=== PATIENT | female | born 1940 | race Caucasian/White ===

== ENCOUNTER 2016-06-12 10:57 | Emergency (ER) | payer MEDICARE, OTHER ==
[2016-06-12 12:23] LABS: Urine Bacteria 3+ (Absent); Urine Bilirubin Negative (Negative); Urine Glucose Negative (Negative); Urine Nitrite Negative (Negative)
[2016-06-12 12:25] LABS: Hematocrit 41 % (35-47); Hemoglobin 13.5 g/dl (12.0-16.0); Mean Corpuscular HGB Conc 33 g/dl (31-36); Mean Corpuscular Hemoglobin 30 pg (27-31); Mean Corpuscular Volume 90 fL (80-97); Mean Platelet Volume 8 um3 (7.4-10.4); Red Blood Count 4.55 10^6/ul (4.0-5.4); Red Cell Distribution Width 14 % (10.5-15); White Blood Count 14.3 10^3/ul (3.5-10.8)
[2016-06-12 12:40] LABS: ALT 10 U/L (7-52); AST 14 U/L (13-39); Albumin 4.5 g/dL (3.2-5.2); Alkaline Phosphatase 60 U/L (34-104); Anion Gap 9 mmol/L (2-11); BUN/Creatinine Ratio 11.8 (8-20); Blood Urea Nitrogen 9 mg/dL (6-24); C Reactive Protein 120.13 mg/L (< 5.00); CO2 Carbon Dioxide 24 mmol/L (22-32); Calcium 9.5 mg/dL (8.6-10.3); Chloride 97 mmol/L (101-111); EGFR African American 94.9 (>60); EGFR Non-African American 73.8 (>60); Globulin 2.9 g/dL (2-4); Glucose 121 mg/dL (70-100); Lipase < 10 U/L (11.0-82.0); Potassium 3.8 mmol/L (3.5-5.0); Sodium 130 mmol/L (133-145); Total Protein 7.4 g/dL (6.4-8.9)
[2016-06-12] MEDS ORDERED: traMADol TAB* 50 MG PO ONE (13:26)
[2016-06-12] MEDS ORDERED: Ciprofloxacin TAB* 500 MG PO ONE (13:26)
[2016-06-12 13:45] VITALS: BP 136/79
--- NOTE | 2016-07-15 10:54 | ED ---
clayton Hsu Timothy, scribed for Allan Adorno MD on 06/12/16 at 1206 . Abdominal Pain/Female - HPI Summary HPI Summary: Dianna Harmon is a 75 yo female presenting to [facility] with 3/10 burning mid- abd pain for the past 2 days. Her is present in room. She also has nausea without vomiting or diarrhea, and a Hx of diverticulosis. She had a sonogram of her kidneys recently, with no acute results. She notes an increase in urinary frequency, and when she gave a urine sample today she noticed sediment in the sample. She had a normal BM today, which did not alleviate the pain. Her pain increases with food. She had a normal BM today. Her MHx includes diverticulosis, arthritis, GERD, ulcer. - History of Current Complaint Chief Complaint: EDAbdPain Stated Complaint: ABD PAIN Time Seen by Provider: 06/12/16 11:41 Hx Obtained From: Patient Onset/Duration: Gradual Onset, Lasting Days, Still Present Timing: Constant Severity Initially: Moderate Severity Currently: Moderate Pain Intensity: 3 Pain Scale Used: 0-10 Numeric Location: Epigastric Radiates: No Character: Burning Aggravating Factor(s): Food Alleviating Factor(s): Nothing Associated Signs and Symptoms: Positive: Negative, Nausea. Negative: Constipation, Vomiting, Diarrhea Allergies/Adverse Reactions: Allergies Allergy/AdvReac Type Severity Reaction Status Date / Time Trees and Grasses Allergy Mild Congestion Uncoded 05/12/12 09:27 PMH/Surg Hx/FS Hx/Imm Hx Endocrine/Hematology History: Denies: Hx Diabetes, Hx Thyroid Disease Cardiovascular History: Denies: Hx Hypertension Respiratory History: Denies: Hx Asthma, Hx Chronic Obstructive Pulmonary Disease (COPD) GI History: Reports: Hx Ulcer - Years ago - Cancer History Hx Chemotherapy: No Hx Radiation Therapy: No - Surgical History Surgery Procedure, Year, and Place: TOTAL HYSTERECTOMY 1986. appendectomy. tonsilectomy - Immunization History Date of Tetanus Vaccine: UNKNOWN Date of Influenza Vaccine: NO Infectious Disease History: No Infectious Disease History: Denies: Hx Hepatitis, Hx Human Immunodeficiency Virus (HIV), Traveled Outside the [place] in Last 30 Days - Family History Known Family History: Positive: Cardiac Disease - brothers , Hypertension, Diabetes, Other - CVA - Social History Alcohol Use: None Substance Use Type: Reports: None Smoking Status (MU): Never Smoked Tobacco Review of Systems Constitutional: Negative Negative: Fever, Chills Eyes: Negative Negative: Erythema ENT: Negative Negative: Sore Throat Cardiovascular: Negative Negative: Chest Pain Respiratory: Negative Negative: Shortness Of Breath, Cough Positive: Abdominal Pain, Nausea. Negative: Vomiting, Diarrhea Positive: frequency. Negative: dysuria, hematuria Musculoskeletal: Negative Negative: Myalgia, Edema - legs Skin: Negative Negative: Rash Neurological: Negative - no dizziness Psychological: Normal All Other Systems Reviewed And Are Negative: Yes Physical Exam - Summary Physical Exam Summary: Constitutional: Well-developed, Well-nourished, Alert. (-) Distressed Skin: Warm, Dry HENT: Normocephalic; Atraumatic Eyes: Conjunctiva normal Neck: Musculoskeletal ROM normal neck. (-) JVD, (-) Stridor, (-) Tracheal deviation Cardio: Rhythm regular, rate normal, Heart sounds normal; Intact distal pulses; The pedal pulses are 2+ and symmetric. Radial pulses are 2+ and symmetric. (-) Murmur Pulmonary/Chest wall: Effort normal. (-) Respiratory distress, (-) Wheezes, (-) Rales Abd: Soft, (+) suprapubic tenderness, (-) Distension, (-) Guarding, (-) Rebound Musculoskeletal: (-) Edema Lymph: (-) Cervical adenopathy Neuro: Alert, Oriented x3 Psych: Mood and affect Normal Triage Information Reviewed: Yes Vital Signs On Initial Exam: Initial Vitals Temp Pulse Resp BP Pulse Ox 99.3 F 107 18 142/59 100 06/12/16 10:59 06/12/16 10:59 06/12/16 10:59 06/12/16 10:59 06/12/16 10:59 Vital Signs Reviewed: Yes - [place] Coma Scale Coma Scale Total: 15 Diagnostics - Vital Signs Vital Signs Temp Pulse Resp BP Pulse Ox 06/12/16 11:44 99.3 F 107 18 142/59 100 06/12/16 10:59 99.3 F 107 18 142/59 100 - Laboratory Result Diagrams: 06/12/16 12:05 06/12/16 12:05 Lab Statement: Any lab studies that have been ordered have been reviewed, and results considered in the medical decision making process. Abdominal Pain Fem Course/Dx - Course Course Of Treatment: Dianna Harmon is a 75 yo female presenting to [facility] with 3/10 buring abd pain for the past 2 days with nausea and no vomiting or diarrhea and a Hx of diverticulosis. CT A/P was offered, but declined by the Pt as she felt it was unnecessary. After clinical examination and review of her lab studies, she will be discharged home with UTI and appropriate instructions. - Diagnoses Differential Diagnosis: Positive: Diverticulitis, Urinary Tract Infection Provider Diagnoses: UTI (urinary tract infection) Discharge - Discharge Plan Condition: Stable Disposition: HOME Prescriptions: Ciprofloxacin TAB* [Cipro 500 MG TAB*] 500 mg PO BID #20 tab traMADol TAB* [Ultram*] 25 mg PO Q8H PRN #6 tab MDD 3 PRN Reason: Pain - Moderate To Severe Patient Education Materials: Urinary Tract Infection in Women (ED) Referrals: Ravinder Hickey MD [Primary Care Provider] - 2 Days Additional Instructions: Please follow up with your primary care physician or [facility] regarding your visit to the emergency department today. Return to the emergency department with any new or recurring symptoms. The documentation as recorded by the clayton jefferson Timothy accurately reflects the service I personally performed and the decisions made by me, Allan Adorno MD.
== END 2016-06-12 13:44 | disposition home or self-care (01) ==
LOC: SUPCPDRO 10:57 → ED 10:57
DX: N39.0 Urinary tract infection, site not specified (principal); R10.9 Unspecified abdominal pain; R11.0 Nausea
CPT/HCPCS: 36415; 80053; 81003; 81015; 83605; 83690; 85025; 86140; 87086; 99282; A9270-GY

== ENCOUNTER 2017-02-09 13:22 | Emergency (ER) | payer MEDICARE, OTHER ==
[2017-02-09] MEDS ORDERED: Ondansetron INJ* 2 MG/ML VIAL IV ONE ×2 (14:30→19:18)
[2017-02-09 14:50] LABS: ABS Basophils 0 10^3/ul (0-0.2); ABS Eosinophils 0 10^3/ul (0-0.6); ABS Lymphocytes 0.7 10^3/ul (1.0-4.8); ABS Monocytes 0.8 10^3/ul (0-0.8); ABS Nucleated RBC 0 10^3/ul; Eosinophil % 0.2 % (0-6); Hematocrit 38 % (35-47); Hemoglobin 12.9 g/dl (12.0-16.0); Mean Corpuscular HGB Conc 34 g/dl (31-36); Mean Corpuscular Hemoglobin 30 pg (27-31); Mean Corpuscular Volume 89 fL (80-97); Mean Platelet Volume 7 um3 (7.4-10.4); Nucleated Red Blood Cells % 0; Platelet Count 285 10^3/ul (150-450); Red Blood Count 4.28 10^6/ul (4.0-5.4); Red Cell Distribution Width 14 % (10.5-15); White Blood Count 11.5 10^3/ul (3.5-10.8)
[2017-02-09 15:06] LABS: EGFR Non-African American 91.4 (>60); INR 0.9 (0.77-1.02)
[2017-02-09 15:21] LABS: Urine Appearance Clear; Urine Blood 2+ (Negative); Urine Color Colorless; Urine Ketones 1+ (Negative); Urine Protein Negative (Negative); Urine Specific Gravity 1.003 (1.010-1.030); Urine Urobilinogen Negative (Negative)
[2017-02-09] MEDS: NS 0.9% 1000 ML* 2,000 ML IV ONE ×2 (15:30→15:43)
[2017-02-09] MEDS ORDERED: Iohexol 300* (CONTRAST) 10 ML SDV IV ONE (17:00)
--- NOTE | 2017-02-09 18:00 | RAD ---
INDICATION: Lower abdominal pain. History of diverticulitis and colitis. Blood and mucus in stool. Post hysterectomy, cholecystectomy, appendectomy, RIGHT total hip replacement. COMPARISON: July 10, 2016 CT. TECHNIQUE: Multidetector CT images were obtained from the lung bases to the ischial tuberosities with 68 mL Omnipaque 300 IV and oral contrast. Multiplanar reformation. REPORT: Unremarkable visualized inferior thorax. Few LEFT hepatic lobe cysts measuring up to 1.3 cm maximum dimension without significant change. Post cholecystectomy. Mild intra and extrahepatic biliary dilatation likely secondary to prior cholecystectomy is grossly unchanged. No calcified stone or lesion evident along the course of the common bile duct. No CT abnormality of the pancreas or spleen. Small hiatal hernia. Negative for additional CT abnormality of the upper GI or small bowel. Contrast extends to the rectum. There is approximate 6 cm length of moderate mural thickening at the proximal sigmoid colon new compared with the prior exam. Severe sigmoid diverticulosis. No definitive perienteric inflammatory stranding appreciated. Small volume of free fluid at the dependent pelvis. Negative for free air or significant hernias. Normal adrenal glands. Symmetric nephrograms and pyelograms. Small RIGHT renal cortical cysts and LEFT parapelvic renal cysts. No suspicious focal renal lesions or hydronephrosis. No abnormality along the course of the nondilated ureters. Assessment of the urinary bladder limited due to artifact from the RIGHT hip prosthesis without gross abnormality. Post hysterectomy. Unremarkable adnexal regions. Negative for lymphadenopathy. Mild atherosclerotic plaque of normal diameter abdominal aorta and iliac arteries. 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 Advanced degenerative spondylosis and facet joint osteoarthritis at L4-L5 and L5-S1 with associated moderate LEFT L4-L5 and severe RIGHT L5-S1 foraminal stenosis without significant change. Negative for suspicious focal osseous lesions. IMPRESSION: 1. Nonspecific 6 cm length of moderate mural thickening at the proximal sigmoid colon new compared with the July 10, 2016 exam. While there is diverticulosis the mural thickening is not definitively attributable to diverticulitis. Consider infectious and inflammatory colitis as well as potential neoplastic mural thickening. 2. Small volume of free pelvic fluid. 3. Negative for lymphadenopathy.
[2017-02-09] MEDS ORDERED: Ciprofloxacin TAB* 500 MG PO ONE ×2 (18:40→18:41)
[2017-02-09] MEDS ORDERED: metroNIDAZOLE TAB* 250 MG PO ONE ×2 (18:41)
[2017-02-09] MEDS ORDERED: O ndansetron ODT 4MG 2TAB PRPK 4 MG PAK PO ONE (18:43)
--- NOTE | 2017-02-09 18:52 | ED ---
Cydney Hsu Julia, scribed for Melvin Cruz MD on 02/09/17 at 1530 . Abdominal Pain/Female - HPI Summary HPI Summary: This patient is a 76 year old F presenting to [facility] accompanied by with a chief complaint of intermittent RLQ abdominal pain for the past few weeks worsening in severity and spreading across lower abdomen today. The patient rates the pain 9/10 in severity. Patient reports frequent urination and BM, mucousy and bloody stool, dry oral mucosa, and mild nausea. Patient was diagnosed with diverticulitis in June 2016 and had her R hip replaced on 2016. - History of Current Complaint Chief Complaint: EDAbdPain Stated Complaint: ABD PAIN Time Seen by Provider: 02/09/17 14:17 Hx Obtained From: Patient Onset/Duration: Lasting Weeks Timing: Intermittent Episode Lasting Pain Intensity: 9 Pain Scale Used: 0-10 Numeric Location: Discrete At: RLQ, Discrete At: LLQ Associated Signs and Symptoms: Positive: Other: - frequent urination and BM, mucousy and bloody stool, dry oral mucosa, and mild nausea Allergies/Adverse Reactions: Allergies Allergy/AdvReac Type Severity Reaction Status Date / Time Codeine Allergy n/v Verified 12/09/16 08:53 Diphenhydramine Allergy n/v Verified 12/09/16 08:53 [From Benadryl] Trees and Grasses Allergy Mild Congestion Uncoded 12/09/16 08:53 PMH/Surg Hx/FS Hx/Imm Hx Endocrine/Hematology History: Reports: Hx Anemia - long ago Denies: Hx Diabetes, Hx Thyroid Disease Cardiovascular History: Denies: Hx Hypertension, Other Cardiovascular Problems/Disorders Respiratory History: Denies: Hx Asthma, Hx Chronic Obstructive Pulmonary Disease (COPD) GI History: Reports: Hx Gastroesophageal Reflux Disease - years ago, Hx Ulcer - Years ago, Other GI Disorders - hx diverticulosis History: Reports: Other Problems/Disorders - feww utis in the past Musculoskeletal History: Reports: Hx Arthritis - fingers, hips,, Hx Bursitis - blanco shoulders, Hx Tendonitis - shoulders Denies: Other Musculoskeletal History Sensory History: Reports: Hx Contacts or Glasses - glasses Denies: Hx Hearing Aid Opthamlomology History: Reports: Hx Contacts or Glasses - glasses Neurological History: Denies: Other Neuro Impairments/Disorders - Cancer History Hx Chemotherapy: No Hx Radiation Therapy: No - Surgical History Surgery Procedure, Year, and Place: TOTAL HYSTERECTOMY 1986, CHOLECYSTECTOMY, APPENDECTOMY Hx Anesthesia Reactions: No - Immunization History Date of Tetanus Vaccine: UNKNOWN Date of Influenza Vaccine: NO Infectious Disease History: No Infectious Disease History: Denies: Hx Hepatitis, Hx Human Immunodeficiency Virus (HIV), Hx of Known/ Suspected MRSA, Hx Shingles, Traveled Outside the [place] in Last 30 Days - Family History Known Family History: Negative: Cardiac Disease, Diabetes - Social History Alcohol Use: None Hx Substance Use: No Substance Use Type: Reports: None Hx Tobacco Use: No Smoking Status (MU): Never Smoked Tobacco Review of Systems Positive: Abdominal Pain - lower, Nausea, Other - mucousy and bloody stool and frequent BM Positive: frequency Positive: Other - dry oral mucosa All Other Systems Reviewed And Are Negative: Yes Physical Exam - Summary Physical Exam Summary: General: well-appearing, mild pain distress Skin: warm, color reflects adequate perfusion, dry, slightly dry oral mucosa Head: normal Eyes: EOMI, FLORIN ENT: normal Neck: supple, nontender Respiratory: CTA, breath sounds present Cardiovascular: RRR Abdomen: soft, minimally tender across abdomen Bowel: present Musculoskeletal: normal, strength/ROM intact Neurological: normal, sensory/motor intact, A&O x3 Psychological: affect/mood appropriate Triage Information Reviewed: Yes Vital Signs On Initial Exam: Initial Vitals Temp Pulse Resp BP Pulse Ox 98.5 F 83 18 135/61 99 02/09/17 13:24 02/09/17 13:24 02/09/17 13:24 02/09/17 13:24 02/09/17 13:24 Vital Signs Reviewed: Yes Diagnostics - Vital Signs Vital Signs Temp Pulse Resp BP Pulse Ox 02/09/17 14:30 120/59 02/09/17 14:01 74 98 02/09/17 14:00 121/54 02/09/17 13:24 98.5 F 83 18 135/61 99 - Laboratory Lab Results: Lab Results 02/09/17 Range/Units 14:40 WBC 11.5 H (3.5-10.8) 10^3/ul RBC 4.28 (4.0-5.4) 10^6/ul Hgb 12.9 (12.0-16.0) g/dl Hct 38 (35-47) % MCV 89 (80-97) fL MCH 30 (27-31) pg MCHC 34 (31-36) g/dl RDW 14 (10.5-15) % Plt Count 285 (150-450) 10^3/ul MPV 7 L (7.4-10.4) um3 Neut % (Auto) 86.7 H (38-83) % Lymph % (Auto) 6.0 L (25-47) % [place] % (Auto) 6.8 (1-9) % Eos % (Auto) 0.2 (0-6) % Baso % (Auto) 0.3 (0-2) % Absolute Neuts (auto) 10.0 H (1.5-7.7) 10^3/ul Absolute Lymphs (auto) 0.7 L (1.0-4.8) 10^3/ul Absolute Monos (auto) 0.8 (0-0.8) 10^3/ul Absolute Eos (auto) 0 (0-0.6) 10^3/ul Absolute Basos (auto) 0 (0-0.2) 10^3/ul Absolute Nucleated RBC 0 10^3/ul Nucleated RBC % 0 Result Diagrams: 02/09/17 14:40 02/09/17 14:40 Lab Statement: Any lab studies that have been ordered have been reviewed, and results considered in the medical decision making process. - CT A/P CT Interpretation Completed By: Radiologist - 1. Nonspecific 6 cm length of moderate mural thickening at the proximal sigmoid colon new compared with the July 10, 2016 exam. While there is diverticulosis the mural thickening is not definitively attributable to diverticulitis. Consider infectious and inflammatory colitis as well as potential neoplastic mural thickening. 2. Small volume of free pelvic fluid. 3. Negative for lymphadenopathy. ED Physician has reviewed this report. Abdominal Pain Fem Course/Dx - Course Course Of Treatment: DISCUSSED RESULTS WITH PATIENT AND . DISCUSSED THE COLITIS FINDING AND THE NEED FOR FURTHER EVALUATION TO INCLUDE A COLONOSCOPY. SHE WILL DISCUSS WITH HER PMD. PAIN IMPROVED IN THE ED. DISCUSSED ADMISSION WITH THE PATIENT AND HER ; WITH THE PAIN IMPROVED WILL F/U WITH PMD; RETURN IF WORSE. - Diagnoses Provider Diagnoses: Diverticulitis, Colitis, Abdominal pain Discharge - Discharge Plan Condition: Stable Disposition: HOME Prescriptions: Ciprofloxacin TAB* [Cipro 500 MG TAB*] 500 mg PO BID #18 tab Metronidazole [Flagyl 500 MG TAB] 500 mg PO QID #38 tab Ondansetron ODT TAB* [Zofran 4 MG Odt TAB*] 4 mg PO Q6H PRN #10 tab.odt PRN Reason: Nausea Patient Education Materials: Diverticulitis (ED), Colitis (ED), Abdominal Pain (ED) Referrals: Eliza Batista NP [Primary Care Provider] - Additional Instructions: FOLLOW UP WITH YOUR DOCTOR. DISCUSS FURTHER EVALUATION OF YOUR CT RESULTS OF COLON INFLAMMATION AND WETHER FURTHER EVALUATION WITH A COLONOSCOPY IS REQUIRED. CALL TOMORROW FOR FOLLOW UP. RETURN TO THE EMERGENCY DEPARTMENT FOR ANY WORSENING OF YOUR CONDITION; PAIN, FEVER, YOU FEEL ILL OR QUESTIONS OR CONCERNS. The documentation as recorded by the Cydney jefferson Julia accurately reflects the service I personally performed and the decisions made by me, Melvin Cruz MD.
[2017-02-09] MEDS ORDERED: Ondansetron ODT TAB* 4 MG ONE (19:17)
[2017-02-09 19:36] VITALS: BP 122/51
--- NOTE | 2017-02-10 09:45 | PN ---
Progress Note - Progress Note Date of Service: 02/09/17 Note: patient diagnosed and treated for diverticulitis. stool culture reveal fecal lactoferrin (WBC). No further changes required at this time.
--- NOTE | 2017-02-11 13:25 | ED ---
Progress - Progress Note Progress Note: Stool cx neg for shiga toxins, cryptosporidium and giardia. No changes. Course/Dx - Course Course Of Treatment: DISCUSSED RESULTS WITH PATIENT AND . DISCUSSED THE COLITIS FINDING AND THE NEED FOR FURTHER EVALUATION TO INCLUDE A COLONOSCOPY. SHE WILL DISCUSS WITH HER PMD. PAIN IMPROVED IN THE ED. DISCUSSED ADMISSION WITH THE PATIENT AND HER ; WITH THE PAIN IMPROVED WILL F/U WITH PMD; RETURN IF WORSE. - Diagnoses Provider Diagnoses: Diverticulitis, Colitis, Abdominal pain
== END 2017-02-09 19:38 | disposition home or self-care (01) ==
LOC: ED 13:22
DX: K57.92 Diverticulitis of intestine, part unspecified, without perforation or abscess without bleeding (principal); K52.9 Noninfective gastroenteritis and colitis, unspecified; K57.30 Diverticulosis of large intestine without perforation or abscess without bleeding; Z87.19 Personal history of other diseases of the digestive system; Z88.5 Allergy status to narcotic agent; Z88.8 Allergy status to other drugs, medicaments and biological substances
CPT/HCPCS: 36415; 74177; 80053; 81003; 81015; 82270; 83605; 83630; 83690; 83880; 85025; 85610; 85730; 86140; 87045; 87046; 87077; 87086; 87328; 87329; 87493; 87899; 96374; 96376; 99283; A9270-GY; J2405; Q9967

== ENCOUNTER 2017-07-28 05:46 | Emergency (ER) | payer MEDICARE, OTHER ==
[2017-07-28] MEDS ORDERED: NS 0.9% 1000 ML* 1,000 ML IV ONE (05:54)
[2017-07-28 06:34] LABS: ABS Basophils 0 10^3/ul (0-0.2); ABS Eosinophils 0 10^3/ul (0-0.6); ABS Lymphocytes 0.7 10^3/ul (1.0-4.8); ABS Monocytes 0.8 10^3/ul (0-0.8); ABS Neutrophils 7.6 10^3/ul (1.5-7.7); ABS Nucleated RBC 0 10^3/ul; Eosinophil % 0.5 % (0-6); Hematocrit 40 % (35-47); Hemoglobin 14.2 g/dl (12.0-16.0); Mean Corpuscular HGB Conc 36 g/dl (31-36); Mean Corpuscular Hemoglobin 32 pg (27-31); Mean Corpuscular Volume 90 fL (80-97); Mean Platelet Volume 7.2 um3 (7.4-10.4); Nucleated Red Blood Cells % 0; Platelet Count 272 10^3/ul (150-450); Red Blood Count 4.47 10^6/ul (4.00-5.40); Red Cell Distribution Width 13 % (10.5-15); White Blood Count 9.3 10^3/ul (3.5-10.8)
[2017-07-28 06:53] LABS: EGFR Non-African American 70.4 (>60)
[2017-07-28] MEDS ORDERED: Hyoscyamine TAB* 0.125 MG PO ONE (06:56)
[2017-07-28] MEDS ORDERED: Ondansetron ODT TAB* 4 MG PO ONE (06:56)
[2017-07-28 06:57] LABS: INR 0.93 (0.77-1.02)
[2017-07-28 07:54] VITALS: BP 118/66
--- NOTE | 2017-07-29 06:52 | ED ---
Manoj Hsu Tariq, scribed for Josesito Berry MD on 07/28/17 at 0620 . Abdominal Pain/Female - HPI Summary HPI Summary: A 76 y/o female presents to the ED c/o severe RLQ abdominal pain. Starting yesterday, post-lunch, pt vomited food out. Initially, the mild pain started with cramping, however became more severe during the night and this morning along with several episodes (half dozen) of loose bloody diarrhea (bright red in diarrhea/stool). Pt characterizes the pain as an ache and burning sensation. Currently, she has lower abdominal pain and feels nauseated, however she does not feel the need to go to restroom like before. She denies any fever, joint pain, or rashes, although her hip hurts from the abdominal pain. Currently on no blood thinners, however is taking calcium, probiotic, CV[facility] fiber therapy. PMHx of diverticulitis. Right hip replacement on December 09 2016. - History of Current Complaint Chief Complaint: EDAbdPain Stated Complaint: ABD PAIN/ABNORMAL BLEEDING Hx Obtained From: Patient Onset/Duration: Gradual Onset, Lasting Days, Worse Since Severity Initially: Mild Severity Currently: Severe Pain Intensity: 7 Pain Scale Used: 0-10 Numeric Character: Burning, Other: - Ache Aggravating Factor(s): Nothing Alleviating Factor(s): Nothing Associated Signs and Symptoms: Positive: Blood in Stool, Nausea, Vomiting, Diarrhea Allergies/Adverse Reactions: Allergies Allergy/AdvReac Type Severity Reaction Status Date / Time codeine Allergy Vomiting Verified 07/28/17 05:52 diphenhydramine Allergy Vomiting Verified 07/28/17 05:52 [From Benadryl Allergy] tree and shrub pollen Allergy Dry Eyes Verified 07/28/17 05:52 PMH/Surg Hx/FS Hx/Imm Hx Endocrine/Hematology History: Reports: Hx Anemia - long ago Denies: Hx Diabetes, Hx Thyroid Disease Cardiovascular History: Denies: Hx Hypertension, Other Cardiovascular Problems/Disorders Respiratory History: Denies: Hx Asthma, Hx Chronic Obstructive Pulmonary Disease (COPD) GI History: Reports: Hx Gastroesophageal Reflux Disease - years ago, Hx Ulcer - Years ago, Other GI Disorders - hx diverticulosis History: Reports: Other Problems/Disorders - feww utis in the past Denies: Hx Renal Disease Musculoskeletal History: Reports: Hx Arthritis - fingers, hips,, Hx Bursitis - blanco shoulders, Hx Tendonitis - shoulders Denies: Other Musculoskeletal History Sensory History: Reports: Hx Contacts or Glasses - glasses Denies: Hx Hearing Aid Opthamlomology History: Reports: Hx Contacts or Glasses - glasses Neurological History: Denies: Other Neuro Impairments/Disorders - Cancer History Hx Chemotherapy: No Hx Radiation Therapy: No - Surgical History Surgery Procedure, Year, and Place: TOTAL HYSTERECTOMY 1986, CHOLECYSTECTOMY, APPENDECTOMY Hx Anesthesia Reactions: No - Immunization History Date of Tetanus Vaccine: UNKNOWN Date of Influenza Vaccine: NO Infectious Disease History: No Infectious Disease History: Denies: Hx Hepatitis, Hx Human Immunodeficiency Virus (HIV), Hx of Known/ Suspected MRSA, Hx Shingles, Traveled Outside the [place] in Last 30 Days - Family History Known Family History: Negative: Cardiac Disease, Diabetes - Social History Alcohol Use: None Hx Substance Use: No Substance Use Type: Reports: None Hx Tobacco Use: No Smoking Status (MU): Never Smoked Tobacco Review of Systems Negative: Fever Positive: Abdominal Pain, Vomiting, Diarrhea, Nausea Positive: Other - NEGATIVE: Joint pain; Positive: hip pain Negative: Rash All Other Systems Reviewed And Are Negative: Yes Physical Exam - Summary Physical Exam Summary: Appearance: Well appearing, no pain distress. Non-ill appearing, comfortable. Skin: normal, warm, dry, reflects adequate perfusion. No pallor. Head/face: normal Eyes: EOMI, FLORIN ENT: normal. Mucous membranes moist. Neck: supple, non-tender Respiratory: CTA, breath sounds present Cardiovascular: RRR, pulses symmetrical. Heart is fine. Abdomen: non-tender, soft. No tenderness or guarding in abdomen. Slight increase in bowel sounds Bowel Sounds: Normal active bowel sounds. Loose brown stool, pink tinge, dried blood. Perianal erythema, no blood externally. Musculoskeletal: normal, strength/ROM intact Neuro: normal, sensory motor intact, A&Ox3 Triage Information Reviewed: Yes Vital Signs On Initial Exam: Initial Vitals Temp Pulse Resp BP Pulse Ox 98.4 F 90 16 117/56 99 07/28/17 05:49 07/28/17 05:49 07/28/17 05:49 07/28/17 05:49 07/28/17 05:49 Vital Signs Reviewed: Yes Diagnostics - Vital Signs Vital Signs Temp Pulse Resp BP Pulse Ox 07/28/17 05:49 98.4 F 90 16 117/56 99 - Laboratory Lab Results: Lab Results 07/28/17 07/28/17 07/28/17 Range/Units 06:22 06:22 06:22 WBC 9.3 (3.5-10.8) 10^3/ul RBC 4.47 (4.00-5.40) 10^6/ul Hgb 14.2 (12.0-16.0) g/dl Hct 40 (35-47) % MCV 90 (80-97) fL MCH 32 H (27-31) pg MCHC 36 (31-36) g/dl RDW 13 (10.5-15) % Plt Count 272 (150-450) 10^3/ul MPV 7.2 L (7.4-10.4) um3 Neut % (Auto) 82.0 (38-83) % Lymph % (Auto) 8.0 L (25-47) % [place] % (Auto) 9.0 H (0-7) % Eos % (Auto) 0.5 (0-6) % Baso % (Auto) 0.5 (0-2) % Absolute Neuts (auto) 7.6 (1.5-7.7) 10^3/ul Absolute Lymphs (auto) 0.7 L (1.0-4.8) 10^3/ul Absolute Monos (auto) 0.8 (0-0.8) 10^3/ul Absolute Eos (auto) 0 (0-0.6) 10^3/ul Absolute Basos (auto) 0 (0-0.2) 10^3/ul Absolute Nucleated RBC 0 10^3/ul Nucleated RBC % 0 INR (Anticoag Therapy) 0.93 (0.77-1.02) Sodium 136 (135-145) mmol/L Potassium 3.7 (3.5-5.0) mmol/L Chloride 101 (101-111) mmol/L Carbon Dioxide 25 (22-32) mmol/L Anion Gap 10 (2-11) mmol/L BUN 15 (6-24) mg/dL Creatinine 0.79 (0.51-0.95) mg/dL Est GFR ( Amer) 90.5 (>60) Est GFR (Non-Af Amer) 70.4 (>60) BUN/Creatinine Ratio 19.0 (8-20) Glucose 134 H (70-100) mg/dL Lactic Acid (0.5-2.0) mmol/L Calcium 9.4 (8.6-10.3) mg/dL Total Bilirubin 1.40 H (0.2-1.0) mg/dL AST 16 (13-39) U/L ALT 13 (7-52) U/L Alkaline Phosphatase 72 (34-104) U/L Troponin I 0.00 (<0.04) ng/mL C-Reactive Protein 7.54 H (< 5.00) mg/L Total Protein 6.6 (6.4-8.9) g/dL Albumin 4.1 (3.2-5.2) g/dL Globulin 2.5 (2-4) g/dL Albumin/Globulin Ratio 1.6 (1-3) Lipase < 10 L (11.0-82.0) U/L 07/28/17 Range/Units 06:22 WBC (3.5-10.8) 10^3/ul RBC (4.00-5.40) 10^6/ul Hgb (12.0-16.0) g/dl Hct (35-47) % MCV (80-97) fL MCH (27-31) pg MCHC (31-36) g/dl RDW (10.5-15) % Plt Count (150-450) 10^3/ul MPV (7.4-10.4) um3 Neut % (Auto) (38-83) % Lymph % (Auto) (25-47) % [place]atham % (Auto) (0-7) % Eos % (Auto) (0-6) % Baso % (Auto) (0-2) % Absolute Neuts (auto) (1.5-7.7) 10^3/ul Absolute Lymphs (auto) (1.0-4.8) 10^3/ul Absolute Monos (auto) (0-0.8) 10^3/ul Absolute Eos (auto) (0-0.6) 10^3/ul Absolute Basos (auto) (0-0.2) 10^3/ul Absolute Nucleated RBC 10^3/ul Nucleated RBC % INR (Anticoag Therapy) (0.77-1.02) Sodium (135-145) mmol/L Potassium (3.5-5.0) mmol/L Chloride (101-111) mmol/L Carbon Dioxide (22-32) mmol/L Anion Gap (2-11) mmol/L BUN (6-24) mg/dL Creatinine (0.51-0.95) mg/dL Est GFR ( Amer) (>60) Est GFR (Non-Af Amer) (>60) BUN/Creatinine Ratio (8-20) Glucose (70-100) mg/dL Lactic Acid 1.1 (0.5-2.0) mmol/L Calcium (8.6-10.3) mg/dL Total Bilirubin (0.2-1.0) mg/dL AST (13-39) U/L ALT (7-52) U/L Alkaline Phosphatase (34-104) U/L Troponin I (<0.04) ng/mL C-Reactive Protein (< 5.00) mg/L Total Protein (6.4-8.9) g/dL Albumin (3.2-5.2) g/dL Globulin (2-4) g/dL Albumin/Globulin Ratio (1-3) Lipase (11.0-82.0) U/L Result Diagrams: 07/28/17 06:22 07/28/17 06:22 Lab Statement: Any lab studies that have been ordered have been reviewed, and results considered in the medical decision making process. - CT CT A/P CT Interpretation Completed By: Radiologist - Diverticulosis with sigmoid with scaring. Internal hemorrhoids. Small amount of intermittent internal bleeding. Right colon superficial colitis. ED PHYSICIAN REVIEWED THIS RADIOLOGY REPORT. - EKG 0607 Cardiac Rate: NL - 81 BPM EKG Rhythm: Sinus Rhythm ST Segment: Non-Specific EKG Interpretation: Normal axis. Earlier transition. EKG unchanged from previous. Re-Evaluation - Re-Evaluation First Eval Re-Evaluation Time: 06:56 Comment: Pt feels fine. Abdominal Pain Fem Course/Dx - Course Course Of Treatment: Patient with a history of similar symptoms in the past including episodes of minimal rectal bleeding like this. She had several scopes which demonstrated various etiologies including internal hemorrhoids and bouts of colitis. Patient's GI doctor was paged out several times but returned page following the patient's disposition. She will follow-up with him today in the office as her blood counts are stable, her pain has resolved and there is no significant blood on exam. - Diagnoses Differential Diagnosis: Positive: Other - Colitis, diverticulosis, internal hemorrhoids, bleeding from polyps, AVM Provider Diagnoses: Rectal bleeding - Provider Notifications Discussed Care Of Patient With: Troy Weaver - Page GI doctor several times, no answer Time Discussed With Above Provider: 06:56 Discharge - Sign-Out/Discharge Documenting (check all that apply): Discharge/Admit/Transfer - Discharge - Discharge Plan Condition: Good Disposition: HOME Prescriptions: Hyoscyamine Sulfate [Levsin/Sl] 0.125 mg SL Q4H PRN #20 sub PRN Reason: cramping Ondansetron [Zofran Odt] 4 mg PO TID PRN #10 tab.rapdis PRN Reason: Nausea Patient Education Materials: Rectal Bleeding (ED) Referrals: Eliza Batista NP [Nurse Practitioner] - Troy Weaver MD [Medical Doctor] - Additional Instructions: Call Dr. Weaver this morning to schedule follow-up. Return with fever, uncontrolled pain, persistent bleeding, worse or other concerns. - Billing Disposition and Condition Condition: GOOD Disposition: Home The documentation as recorded by the Manoj jefferson Tariq accurately reflects the service I personally performed and the decisions made by me, Josesito Berry MD.
== END 2017-07-28 07:50 | disposition home or self-care (01) ==
LOC: ED 05:46
DX: K62.5 Hemorrhage of anus and rectum (principal); K57.30 Diverticulosis of large intestine without perforation or abscess without bleeding; K64.8 Other hemorrhoids; K52.89 Other specified noninfective gastroenteritis and colitis; R11.2 Nausea with vomiting, unspecified; R10.31 Right lower quadrant pain; R19.7 Diarrhea, unspecified; K21.9 Gastro-esophageal reflux disease without esophagitis; Z87.440 Personal history of urinary (tract) infections; Z90.710 Acquired absence of both cervix and uterus; Z90.49 Acquired absence of other specified parts of digestive tract; Z90.89 Acquired absence of other organs; Z88.5 Allergy status to narcotic agent; Z88.8 Allergy status to other drugs, medicaments and biological substances
CPT/HCPCS: 36415; 80053; 83605; 83690; 84484; 85025; 85610; 86140; 93005; 96360; 99283; A9270-GY

== ENCOUNTER 2017-09-16 12:25 | Day surgery (SDC) | payer MEDICARE, OTHER ==
[~2017-09-16 12:25] MED LIST: Acetaminophen TAB* 325 MG PO PRN; Buffered Lidocaine 0.9% SYRIN* 5 ML/SYR SYRINGE INTRADERM ONE
[2017-09-16 14:41] VITALS: BP 123/60
[2017-09-16] MEDS ORDERED: Ketorolac 0.5% OPHTH (NF) 0.5 % 5 ML BTL ONE (14:46)
[2017-09-16] MEDS ORDERED: Lidocaine 1%* 5 ML VIAL ONE (14:46)
[2017-09-16] MEDS ORDERED: Cyclopentolate 1% OPTH.SOL* 2 ML BTL ONE (14:46)
[2017-09-16] MEDS ORDERED: Phenylephrine 2.5% OPTH.SOL* 2 ML BTL ONE (14:46)
[2017-09-16] MEDS ORDERED: Proparacaine 0.5% OPHTH.SOL* 15 ML BTL ONE (14:46)
[2017-09-16] MEDS ORDERED: Neomycin/Polymy/Dex OPTH.SUSP* MAXITROL 0.1% 5 ML ONE (14:46)
[2017-09-16] MEDS ORDERED: Povidone Iodine 5% OPTH* 30 ML BTL ONE (14:46)
[2017-09-16] MEDS ORDERED: Lidocaine 2% EPI 1:200000 MPF*10-20 ML VIAL ONE (14:46)
[2017-09-16] MEDS ORDERED: acetaZOLAMIDE TAB* 250 MG ONE (14:46)
--- NOTE | 2017-09-17 02:44 | OP ---
DATE OF OPERATION: 09/16/17 [facility] DATE OF : 36 SURGEON: Scott La M.D. PREOPERATIVE DIAGNOSIS: Cataract, right eye. POSTOPERATIVE DIAGNOSIS: Cataract, right eye. OPERATIVE PROCEDURE: Extracapsular cataract extraction with intraocular lens implant, right eye. DESCRIPTION OF PROCEDURE: The patient was brought to the operating room after being given 1/2% Alcaine with epinephrine drops in the preoperative area. The eye was prepped and draped in the usual sterile fashion. Sterile drape and eyelid speculum were placed. Again, topical 1/2% Alcaine with epinephrine was given. A paracentesis incision was made at the 9 o'clock position with the No. 75 blade. Clear cornea incision 2.2 x 2.2-mm was created at the 12 o'clock position starting at the anterior limbus using the 2.2-mm keratome. The anterior chamber was irrigated with 0.4 mL of 1% non-preservative intracameral lidocaine and filled with DisCoVisc. A capsulorrhexis was completed using the cystotome and the Utrata forceps. Hydrodissection was performed with balanced salt solution. The lens nucleus was removed with the Phacoemulsification handpiece without incident. Cortex was removed with the irrigation-aspiration handpiece. The capsular bag was re-inflated using DisCoVisc and an SN60WF 19.5 implant was inserted with the shooter. The irrigation-aspiration handpiece was used to remove all residual DisCoVisc. The eye was refilled with balanced salt solution and the wound checked and found to be watertight. Topical Maxitrol drops were given. [id number]/[facility] #: [id number] [facility]
== END 2017-09-16 14:50 | disposition home or self-care (01) ==
LOC: OREAST 12:25
PROVIDERS: ATTEND Specialist
DX: H25.811 Combined forms of age-related cataract, right eye (principal); H50.05 Alternating esotropia; E78.5 Hyperlipidemia, unspecified
CPT/HCPCS: A9270-GY; V2632

== ENCOUNTER 2017-09-23 10:30 | Day surgery (SDC) | payer MEDICARE, OTHER ==
[2017-09-23] MEDS ORDERED: fentaNYL* 50 MCG/ML 2 ML VIAL (100 MCG VIAL) ONE (10:31)
[2017-09-23] MEDS ORDERED: Midazolam* 1 MG/ML 5 ML VIAL (5 MG) ONE (10:31)
[2017-09-23 12:48] VITALS: BP 130/72
[2017-09-23] MEDS ORDERED: Proparacaine 0.5% OPHTH.SOL* 15 ML BTL ONE (14:32)
[2017-09-23] MEDS ORDERED: Lidocaine 1%* 5 ML VIAL ONE (14:32)
[2017-09-23] MEDS ORDERED: Povidone Iodine 5% OPTH* 30 ML BTL ONE (14:32)
[2017-09-23] MEDS ORDERED: Ketorolac 0.5% OPHTH (NF) 0.5 % 5 ML BTL ONE (14:32)
[2017-09-23] MEDS ORDERED: Neomycin/Polymy/Dex OPTH.SUSP* MAXITROL 0.1% 5 ML ONE (14:32)
[2017-09-23] MEDS ORDERED: Lidocaine 2% EPI 1:200000 MPF*10-20 ML VIAL ONE (14:32)
[2017-09-23] MEDS ORDERED: Cyclopentolate 1% OPTH.SOL* 2 ML BTL ONE (14:32)
[2017-09-23] MEDS ORDERED: acetaZOLAMIDE TAB* 250 MG ONE (14:32)
[2017-09-23] MEDS ORDERED: Phenylephrine 2.5% OPTH.SOL* 2 ML BTL ONE (14:32)
--- NOTE | 2017-09-24 10:43 | OP ---
OPERATIVE NOTE: DATE OF OPERATION: 09/23/17 - [facility] DATE OF : 36 SURGEON: Scott La M.D. PREOPERATIVE DIAGNOSIS: Cataract, left eye. POSTOPERATIVE DIAGNOSIS: Cataract, left eye. OPERATIVE PROCEDURE: Extracapsular cataract extraction with intraocular lens implant left eye. PROCEDURE: The patient was brought to the operating room after being given 1/2 % Alcaine with epinephrine drops in the preoperative area. The eye was prepped and draped in the usual sterile fashion. Sterile drape and eyelid speculum were placed. Again, topical 1/2% Alcaine with epinephrine was given. A paracentesis incision was made at the 3 o'clock position with the No.75 blade. Clear cornea incision 2.2 x 2.2-mm was created at the 6 o'clock position starting at the anterior limbus using the 2.2-mm keratome. The anterior chamber was irrigated with 0.4 mL of 1% non-preservative intracameral lidocaine and filled with DisCoVisc. A capsulorrhexis was completed using the cystotome and the Utrata forceps. Hydrodissection was performed with balanced salt solution. The lens nucleus was removed with the Phacoemulsification handpiece without incident. Cortex was removed with the irrigation-aspiration handpiece. The capsular bag was re-inflated using DisCoVisc and an SN60WF 19.5 implant was inserted with the shooter. The irrigation-aspiration handpiece was used to remove all residual DisCoVisc. The eye was refilled with balanced salt solution and the wound checked and found to be watertight. Topical Maxitrol drops were given. [id number]/[facility] #: [id number] [facility]
== END 2017-09-23 12:47 | disposition home or self-care (01) ==
LOC: OREAST 10:30
PROVIDERS: ATTEND Specialist
DX: H25.812 Combined forms of age-related cataract, left eye (principal); H50.05 Alternating esotropia; K21.9 Gastro-esophageal reflux disease without esophagitis; E78.5 Hyperlipidemia, unspecified; R31.9 Hematuria, unspecified; J32.9 Chronic sinusitis, unspecified
CPT/HCPCS: A9270-GY; J2250; J3010; V2632

== ENCOUNTER 2018-06-19 07:35 | Emergency (ER) | payer MEDICARE, OTHER ==
--- NOTE | 2018-06-19 08:09 | ED ---
GI/ HPI - HPI Summary HPI Summary: 77 year old F presenting to [facility] with a chief complaint of bloody stools since last night. The patient rates the pain 2/10 in severity. Symptoms aggravated by nothing. Symptoms alleviated by nothing. Patient additionally complains of diffuse abdominal pain that waxes and wanes. Patient reports decreased appetite and nausea. Patient denies diarrhea and dysuria. Yesterday at [facility], patient felt lightheaded and vomited "yellow juice." Last night, patient had about 4 episodes of bloody stools. This morning, she had another episode of bloody stools. This has happened before but patient has not had recent colonoscopy done with her GI doctor. - History of Current Complaint Chief Complaint: EDGIBleed Time Seen by Provider: 06/19/18 07:48 Stated Complaint: I THINK ITS COLITIS OR DIVERTICULITIS PER PT Hx Obtained From: Patient Onset/Duration: Started Days Ago - 1, Still Present Timing: Constant Severity: Mild Current Severity: Mild Pain Intensity: 2 Location of Pain: Diffuse Associated Signs and Symptoms: Positive: Negative - diarrhea and dysuria, Other : - abdominal pain, decreased appetite, nausea - Additional Pertinent History Primary Care Physician: [id number] - Allergy/Home Medications Allergies/Adverse Reactions: Allergies Allergy/AdvReac Type Severity Reaction Status Date / Time tree and shrub pollen Allergy Dry Eyes Verified 06/19/18 07:41 codeine AdvReac GI Upset Verified 06/19/18 07:41 diphenhydramine AdvReac GI Upset Verified 06/19/18 07:41 [From Benadryl] PMH/Surg Hx/FS Hx/Imm Hx Previously Healthy: No Endocrine/Hematology History: Reports: Hx Anemia - long ago Denies: Hx Diabetes, Hx Thyroid Disease Cardiovascular History: Denies: Hx Hypertension, Other Cardiovascular Problems/Disorders Respiratory History: Denies: Hx Asthma, Hx Chronic Obstructive Pulmonary Disease (COPD), Other Respiratory Problems/Disorders GI History: Reports: Hx Gastroesophageal Reflux Disease - years ago, Hx Hiatal Hernia - small, Hx Ulcer - Years [id number] 1989, Other GI Disorders - hx diverticulosis and diverticulitis History: Reports: Other Problems/Disorders - few utis in the past Denies: Hx Renal Disease Musculoskeletal History: Reports: Hx Arthritis - fingers, hips,, Hx Bursitis - blanco shoulders, Hx Tendonitis - shoulders, Other Musculoskeletal History - ddd, spondolithiasis Sensory History: Reports: Hx Cataracts - blanco, Hx Contacts or Glasses - glasses Denies: Hx Hearing Aid Opthamlomology History: Reports: Hx Cataracts - blanco, Hx Contacts or Glasses - glasses Neurological History: Reports: Other Neuro Impairments/Disorders - Cancer History Hx Chemotherapy: No Hx Radiation Therapy: No - Surgical History Surgery Procedure, Year, and Place: TOTAL HYSTERECTOMY 1986,. CHOLECYSTECTOMY, . APPENDECTOMY. tonsilectomy age 5. 1 cyst from ovary. 1963 right eye muscle. 1969, growth right sinus. 1979, 1972, deviated septum. 1976, blanco ear tubes. 1977, ear tubes removed. 1979, left eye muscle surgery. 1982, ganglion left foot. 1987, lysis from adhesions from abdomen. 1992, occular treatment. 2004, skin tag left eye. 2004, kairtin removed left eye. labial abscess lanced, [facility] [place]. 2007, fess, [facility] [place]. 2008.ganglion left ring finger. cystoscopy 2012, [facility] [place]. 2016, total right hip, [facility] [place] Hx Anesthesia Reactions: Yes - nausea - Immunization History Date of Tetanus Vaccine: UNKNOWN Date of Influenza Vaccine: NO Infectious Disease History: No Infectious Disease History: Denies: Hx Hepatitis, Hx Human Immunodeficiency Virus (HIV), Hx of Known/ Suspected MRSA, Hx Shingles, Traveled Outside the [place] in Last 30 Days - Family History Known Family History: Negative: Cardiac Disease, Diabetes - Social History Alcohol Use: None Hx Substance Use: No Substance Use Type: Reports: None Hx Tobacco Use: No Smoking Status (MU): Never Smoked Tobacco Review of Systems Positive: Abdominal Pain - diffuse, Nausea, Other - bloody stools, decreased appetite. Negative: Diarrhea Negative: dysuria All Other Systems Reviewed And Are Negative: Yes Physical Exam - Summary Physical Exam Summary: Appearance: The patient is well-nourished in no acute distress and in no acute pain. Skin: The skin is warm and dry and skin color reflects adequate perfusion. HEENT: The head is normocephalic and atraumatic. The pupils are equal and reactive. The conjunctivae are clear and without drainage. Nares are patent and without drainage. Mouth reveals moist mucous membranes and the throat is without erythema and exudate. The external ears are intact. The ear canals are patent and without drainage. The tympanic membranes are intact. Neck: The neck is supple with full range of motion and non-tender. There are no carotid bruits. There is no neck vein distension. Respiratory: Chest is non-tender. Lungs are clear to auscultation and breath sounds are symmetrical and equal. Cardiovascular: Heart is regular rate and rhythm. There is no murmur or rub auscultated. There is no peripheral edema and pulses are symmetrical and equal. Abdomen: The abdomen is soft and non-tender. There are normal bowel sounds heard in all four quadrants and there is no organomegaly palpated. Musculoskeletal: There is no back tenderness noted. Extremities are non-tender with full range of motion. There is good capillary refill. There is no peripheral edema or calf tenderness elicited. Neurological: Patient is alert and oriented to person, place and time. The patient has symmetrical motor strength in all four extremities. Cranial nerves are grossly intact. Deep tendon reflexes are symmetrical and equal in all four extremities. Psychiatric: The patient has an appropriate affect and does not exhibit any anxiety or depression. Triage Information Reviewed: Yes Vital Signs On Initial Exam: Initial Vitals Temp Pulse Resp BP Pulse Ox 98.4 F 78 16 124/90 99 06/19/18 07:41 06/19/18 07:41 06/19/18 07:41 06/19/18 07:41 06/19/18 07:41 Vital Signs Reviewed: Yes Diagnostics - Vital Signs Vital Signs Temp Pulse Resp BP Pulse Ox 06/19/18 07:41 98.4 F 78 16 124/90 99 - Laboratory Result Diagrams: 06/19/18 08:20 06/19/18 08:20 Lab Statement: Any lab studies that have been ordered have been reviewed, and results considered in the medical decision making process. - CT Abd/Pel CT Interpretation Completed By: Radiologist Summary of CT Findings: 1. FINDINGS MOST CONSISTENT WITH COLITIS INVOLVING THE DESCENDING COLON.2. STATUS POST CHOLECYSTECTOMY, APPENDECTOMY AND HYSTERECTOMY.3. 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 ED physician has reviewed this report. GIGU Course/Dx - Course Course Of Treatment: Ms. Harmon presented complaining that yesterday afternoon she began to feel nauseated and vomited. She continued to feel queasy all day and noticed symptoms blood on the toilet paper when she moved her bowels. This morning she had a bloody bowel movement where there were clots in the toilet water. She's had episodes of low abdominal pain which are transient although she has a chronic discomfort. She was nontoxic in appearance with stable vital signs. Labs were unremarkable and she underwent noncontrasted CT scan which showed a colitis. There is a chance that this is an ischemic colitis but she has had several episodes of colitis in the past as well as diverticulitis. She's been treated with antibiotics and I will do the same after reviewing the case with Dr. Barrera whho will follw her in the office. - Diagnoses Provider Diagnoses: Colitis - Physician Notifications Discussed Care Of Patient With: Catina Barrera Time Discussed With Above Provider: 09:45 Instructed by Provider To: Other - Dr. Saunders, GI, recommends discharging patient, and agrees to follow up with patient in her office next week Discharge - Sign-Out/Discharge Documenting (check all that apply): Patient Departure - Discharge Patient Received Moderate/Deep Sedation with Procedure: No - Discharge Plan Condition: Stable Disposition: HOME Prescriptions: Ciprofloxacin TAB* [Cipro Tab*] 500 mg PO BID #20 tab metroNIDAZOLE [Flagyl 500 MG TAB] 500 mg PO TID #30 tab Patient Education Materials: Colitis (ED) Referrals: Catina Barrear MD [Medical Doctor] - 06/21/18 Additional Instructions: Call Dr. Ayala's office on 06/21/18, to make a follow-up appointment. Return to the Emergency Department for new or worsening symptoms. - Billing Disposition and Condition Condition: STABLE Disposition: Home - Attestation Statements Document Initiated by Robb: Yes Documenting Scribe: Herminia Leo Provider For Whom Robb is Documenting (Include Credential): Doug William MD Scribe Attestation: I, Herminia Leo, scribed for Doug William MD on 06/19/18 at 1634. Scribe Documentation Reviewed: Yes Provider Attestation: The documentation as recorded by the Herminia jefferson accurately reflects the service I personally performed and the decisions made by me, Doug William MD Status of Scribe Document: Viewed
[2018-06-19] MEDS ORDERED: NS 0.9% 1000 ML** 1,000 ML IV ONE (08:36)
[2018-06-19 08:49] LABS: ABS Lymphocytes 0.6 10^3/ul (1.0-4.8); ABS Neutrophils 7.7 10^3/ul (1.5-7.7); Eosinophil % 0.1 %; Hematocrit 42 % (35-47); Hemoglobin 14.5 g/dL (12.0-16.0); Lymphocyte % 6.8 %; Mean Corpuscular HGB Conc 34 g/dL (31-36); Mean Corpuscular Hemoglobin 31 pg (27-31); Mean Corpuscular Volume 90 fL (80-97); Mean Platelet Volume 7.9 fL (7.4-10.4); Platelet Count 242 10^3/uL (150-450); Red Blood Count 4.73 10^6 /uL (3.70-4.87); Red Cell Distribution Width 13 % (10.5-15); White Blood Count 9.3 10^3/uL (3.5-10.8)
[2018-06-19 09:05] LABS: Albumin 4.6 g/dL (3.2-5.2); Albumin/Globulin Ratio 1.8 (1-3); BUN/Creatinine Ratio 21.3 (8-20); C Reactive Protein 8.96 mg/L (<8.01); Calcium 9.6 mg/dL (8.6-10.3); EGFR African American 90.2 (>60); EGFR Non-African American 74.5 (>60); Globulin 2.5 g/dL (2-4); Total Bilirubin 1.9 mg/dL (0.2-1.0); Total Protein 7.1 g/dL (6.4-8.9)
[2018-06-19 09:18] LABS: Urine Appearance Cloudy; Urine Bacteria Absent (Absent); Urine Bilirubin Negative (Negative); Urine Blood 2+ (Negative); Urine Color Amber; Urine Glucose Negative (Negative); Urine Ketones 1+ (Negative); Urine Nitrite Negative (Negative); Urine Protein 1+(30 mg/dL) (Negative); Urine Red Blood Cell 3+(>10/hpf) (Absent); Urine Specific Gravity 1.023 (1.010-1.030); Urine Squamous Epithelial Cell Present (Absent); Urine Urobilinogen Negative (Negative); Urine White Blood Cell 1+(6-10/hpf) (Absent)
[2018-06-19 10:21] VITALS: BP 112/53
== END 2018-06-19 10:19 | disposition home or self-care (01) ==
LOC: ED 07:35
DX: K52.9 Noninfective gastroenteritis and colitis, unspecified (principal); K21.9 Gastro-esophageal reflux disease without esophagitis; M43.17 Spondylolisthesis, lumbosacral region
CPT/HCPCS: 36415; 74176; 80053; 81003; 81015; 83605; 85025; 86140; 87086; 96360; 96361; 99283

== ENCOUNTER 2020-10-28 08:59 | Observation (INO) ==
[2020-10-28 10:53] LABS: ABS Lymphocytes 0.5 10^3/ul (1.0-4.8); ABS Monocytes 0.6 10^3/ul (0-0.8); ABS Neutrophils 6.5 10^3/ul (1.5-7.7); Hematocrit 39 % (35-47); Hemoglobin 13.3 g/dL (12.0-16.0); Lymphocyte % 7.1 %; Mean Corpuscular HGB Conc 34 g/dL (31-36); Mean Corpuscular Hemoglobin 31 pg (27-31); Mean Corpuscular Volume 91 fL (80-97); Mean Platelet Volume 7.5 fL (7.4-10.4); Nucleated Red Blood Cells % 0.1; Platelet Count 248 10^3/uL (150-450); Red Blood Count 4.25 10^6 /uL (3.70-4.87); Red Cell Distribution Width 13 % (10-15); White Blood Count 7.6 10^3/uL (3.5-10.8)
[2020-10-28 11:10] LABS: Albumin 4.3 g/dL (3.2-5.2); Albumin/Globulin Ratio 1.7 (1-3); Calcium 9.6 mg/dL (8.6-10.3); EGFR African American 85.6 (>60); EGFR Non-African American 70.7 (>60); Globulin 2.5 g/dL (2-4); Potassium 4.1 mmol/L (3.5-5.0); Total Bilirubin 1.9 mg/dL (0.2-1.0); Total Protein 6.8 g/dL (6.4-8.9)
[2020-10-28 11:11] LABS: Troponin I 0.01 ng/mL (<0.03)
[2020-10-28] MEDS ORDERED: Pantoprazole VIAL 40 MG VIAL IV ONE (12:08)
[2020-10-28 13:33] LABS: Rapid COVID-19 Molecular Undetected (Undetected)
[2020-10-28] MEDS: Pantoprazole VIAL 40 MG VIAL IV SCH (16:04)
[2020-10-28 18:42] LABS: Hematocrit 40 % (35-47); Hemoglobin 13.4 g/dL (12.0-16.0)
[2020-10-29] MEDS: Pantoprazole VIAL 40 MG VIAL IV SCH (02:02)
[2020-10-29 05:30] LABS: ABS Eosinophils 0.1 10^3/ul (0-0.6); ABS Lymphocytes 0.9 10^3/ul (1.0-4.8); ABS Monocytes 0.7 10^3/ul (0-0.8); ABS Neutrophils 4.3 10^3/ul (1.5-7.7); Hematocrit 38 % (35-47); Hemoglobin 12.8 g/dL (12.0-16.0); Lymphocyte % 15.7 %; Mean Corpuscular HGB Conc 34 g/dL (31-36); Mean Corpuscular Hemoglobin 31 pg (27-31); Mean Corpuscular Volume 92 fL (80-97); Mean Platelet Volume 7.6 fL (7.4-10.4); Platelet Count 239 10^3/uL (150-450); Red Blood Count 4.16 10^6 /uL (3.70-4.87); Red Cell Distribution Width 14 % (10-15)
[2020-10-29 05:53] LABS: Albumin/Globulin Ratio 1.8 (1-3); Calcium 8.8 mg/dL (8.6-10.3); EGFR African American 92.4 (>60); EGFR Non-African American 76.3 (>60); Globulin 2.2 g/dL (2-4); Potassium 4.3 mmol/L (3.5-5.0); Total Bilirubin 2.2 mg/dL (0.2-1.0); Total Protein 6.2 g/dL (6.4-8.9)
[2020-10-29 11:44] VITALS: BP 124/54
== END 2020-10-29 13:45 | disposition home or self-care (01) ==
LOC: MED 08:59 → ED 08:59 → SUATTDRO 12:50 → MED 14:14
PROVIDERS: ADMIT Nurse Practitioner; ATTEND Internal Medicine

== ENCOUNTER 2024-02-06 09:35 | Inpatient (IN) ==
[2024-02-06 11:43] LABS: ABS Lymphocytes 0.8 10^3/uL (1.0-4.8); ABS Monocytes 1.4 10^3/uL (0.0-0.9); ABS Neutrophils 14.6 10^3/uL (1.5-7.6); ABS Nucleated RBC 0.01 10^3/ul; Eosinophil % 0.1 %; Hematocrit 39.7 % (35-45); Hemoglobin 13.4 g/dL (11.5-14.3); Lymphocyte % 4.5 %; Mean Corpuscular Hemoglobin 30.2 pg (27-33); Mean Corpuscular Hgb Conc 33.6 g/dL (31-36); Mean Corpuscular Volume 89.7 fL (80-97); Mean Platelet Volume 7.6 fL (7.5-11.2); Platelet Count 396 10^3/uL (150-450); Red Blood Count 4.43 10^6/uL (3.63-4.92); White Blood Count 16.8 10^3/uL (3.8-11.8)
[2024-02-06 12:08] LABS: Albumin 4.2 g/dL (3.5-5.7); Albumin/Globulin Ratio 1.7 (1-3); C Reactive Protein 90.22 mg/L (<8.01); Calcium 9.6 mg/dL (8.6-10.3); Creatinine, Serum 0.84 mg/dL (0.51-0.95); Globulin 2.5 g/dL (2-4); Potassium 4.3 mmol/L (3.5-5.0); Total Bilirubin 1.1 mg/dL (0.2-1.0); Total Protein 6.7 g/dL (6.4-8.9); eGFR CKD-EPI 68.1 (>60)
[2024-02-06 12:32] LABS: Urine Appearance Clear; Urine Bilirubin Negative (Negative); Urine Blood 2+ (Negative); Urine Color Light-Yellow; Urine Glucose Negative (Negative); Urine Ketones Negative (Negative); Urine Nitrite Negative (Negative); Urine Protein Negative (Negative); Urine Specific Gravity 1.012 (1.002-1.030); Urine Urobilinogen Negative (Negative); Urine pH 6.5 (5.0-8.0)
[2024-02-06] MEDS: Iohexol 350 (CONTRAST) 500 ML MDV IV ONE (12:36)
[2024-02-06 12:44] LABS: Urine Bacteria Absent /HPF (Absent); Urine Red Blood Cell 2+(6-10/hpf) /HPF (0-Trace); Urine Squamous Epithelial Cell Present /HPF (Absent); Urine White Blood Cell Trace(0-5/hpf) /HPF (0-Trace)
[2024-02-06] MEDS: Piperacillin/Tazobac 3.375 BAG 3.375 GM/100 ML BAG IV ONE ×2 (13:42→15:15)
[2024-02-06] MEDS ORDERED: Al Hydrox/Mg Hydrox/Simet LIQ 30 ML UDC PO PRN (14:51)
[2024-02-06] MEDS ORDERED: fentaNYL 100 mcg/2 ml 50 MCG/ML VIAL IV SLOW PU PRN (14:54)
[2024-02-06] MEDS ORDERED: Zosyn per Pharmacy NOTE FOLLOW UP SCH (15:00)
[2024-02-06] MEDS: NS 0.9% 1000 ml BAG 1,000 ML IV ONE (15:05)
[2024-02-06] MEDS: Enoxaparin 40 MG/0.4 ML SYR SUBCUT SCH (15:23)
[2024-02-06] MEDS: ZOSYN 3.375 GM Q8H per EXTENDED INFUSION IV SCH (18:22)
[2024-02-07] MEDS: ZOSYN 3.375 GM Q8H per EXTENDED INFUSION IV SCH (01:29)
[2024-02-07 06:24] LABS: ABS Eosinophils 0.1 10^3/uL (0.0-0.5); ABS Lymphocytes 1.2 10^3/uL (1.0-4.8); ABS Monocytes 0.9 10^3/uL (0.0-0.9); ABS Neutrophils 4.9 10^3/uL (1.5-7.6); Eosinophil % 1.4 %; Hematocrit 36.2 % (35-45); Hemoglobin 12.5 g/dL (11.5-14.3); Lymphocyte % 16.5 %; Mean Corpuscular Hemoglobin 31.3 pg (27-33); Mean Corpuscular Hgb Conc 34.6 g/dL (31-36); Mean Corpuscular Volume 90.3 fL (80-97); Mean Platelet Volume 7.1 fL (7.5-11.2); Platelet Count 304 10^3/uL (150-450); Red Blood Count 4.01 10^6/uL (3.63-4.92); Red Cell Distribution Width 13.4 % (12-17); White Blood Count 7.1 10^3/uL (3.8-11.8)
[2024-02-07 06:58] LABS: Calcium 7.9 mg/dL (8.6-10.3); Creatinine, Serum 0.64 mg/dL (0.51-0.95); Potassium 4.3 mmol/L (3.5-5.0); eGFR CKD-EPI 86.5 (>60)
[2024-02-08 06:45] LABS: C Reactive Protein 34.67 mg/L (<8.01); Calcium 8.2 mg/dL (8.6-10.3); Creatinine, Serum 0.7 mg/dL (0.51-0.95); Potassium 4.5 mmol/L (3.5-5.0); eGFR CKD-EPI 84.7 (>60)
[2024-02-08 08:51] LABS: Magnesium 2.3 mg/dL (1.9-2.7)
[2024-02-09 08:48] LABS: Calcium 8.2 mg/dL (8.6-10.3); Creatinine, Serum 0.63 mg/dL (0.51-0.95); Magnesium 2.1 mg/dL (1.9-2.7); Potassium 4.5 mmol/L (3.5-5.0); eGFR CKD-EPI 86.9 (>60)
[2024-02-09 09:36] VITALS: BP 124/49
== END 2024-02-09 12:50 | disposition home or self-care (01) | DRG 392 ==
LOC: ED 09:35 → EDHOLD 09:35 → SUATTDRO 14:04 → MED 20:40
PROVIDERS: ADMIT Internal Medicine; ATTEND Student in an Organized Health Care Education/Training Program